=== PATIENT | male | born 1975 | race African-American/Black ===

== ENCOUNTER 2017-01-23 07:55 | Day surgery (SDC) | payer BC, MEDICARE, MEDICAID ==
[~2017-01-23 07:55] MED LIST: Bupivacaine 0.5% 50 ML MDV ONE; Lidocaine 1% with EPINEPHrine 1:100,000 50 ML MDV ONE
[2017-01-23] MEDS ORDERED: fentaNYL 100 MCG/2 ML SDV ONE (08:03)
[2017-01-23] MEDS ORDERED: Midazolam 1 MG/ML 2 ML SDV ONE (08:03)
[2017-01-23] MEDS ORDERED: Propofol 200 MG/20 ML SDV ONE (08:03)
[2017-01-23] MEDS ORDERED: Dextrose 5%-Lactated Ringers 1,000 ML IV SCH (08:15)
[2017-01-23] MEDS ORDERED: Oseltamivir 75 MG Cap PO ONE (10:20)
[2017-01-23 10:52] VITALS: BP 134/80
--- NOTE | 2017-01-29 15:49 | OR ---
DATE OF PROCEDURE: 01/23/2017 PREOPERATIVE DIAGNOSIS: Status external hemodialysis catheter placement. POSTOP DIAGNOSIS: Status external hemodialysis catheter placement. PROCEDURE: Removal of external hemodialysis catheter ([id number]). ANESTHESIA: Local plus IV sedation. INDICATIONS FOR PROCEDURE: A 41-year-old male status post placement of an external hemodialysis catheter. He had problems with rejection of his renal transplant. This problem is now resolving, and he is not requiring dialysis, and is to undergo removal of the catheter at this time. Potential risks including bleeding and infection were reviewed, and the patient wishes to proceed. DETAILS OF PROCEDURE: The patient was taken to the operating room and placed in supine position. IV sedation was administered, after which the area around the catheter was prepped and draped. Sutures were cut, and upon that, the catheter was withdrawn. Pressure was applied as was a dressing, and the procedure then concluded. There were no other complications. Shola Navarro MD /[id number]
== END 2017-01-23 11:55 | disposition home or self-care (01) ==
LOC: JP.SDS 07:55
PROVIDERS: ATTEND Surgery
DX: Z49.01 Encounter for fitting and adjustment of extracorporeal dialysis catheter (principal); N18.9 Chronic kidney disease, unspecified; Z94.0 Kidney transplant status; Z88.8 Allergy status to other drugs, medicaments and biological substances
CPT/HCPCS: 36589; A9270; J2250; J2704; J3010; J7042

== ENCOUNTER 2017-03-12 00:41 | Emergency (ER) | payer BC, MEDICARE, MEDICAID ==
[2017-03-12] MEDS ORDERED: Sodium Chloride 0.9% 1,000 ML IV SCH (01:00)
[2017-03-12 01:05] VITALS: BP 144/87
[2017-03-12] MEDS ORDERED: Oseltamivir 75 MG Cap PO ONE (01:40)
--- NOTE | 2017-03-12 01:43 | EDM.PDOC ---
ED HISTORY OF PRESENT ILLNESS - General Chief Complaint: Respiratory Problem Stated Complaint: ILLNESS Time Seen by Provider: 03/12/17 00:45 Source: Reports: Patient History Limitations: Reports: No limitations - History of Present Illness INITIAL COMMENTS - FREE TEXT/NARRATIVE: Requests testing for influenza; this is a 41-year-old male post kidney transplant, reports yesterday started to have a runny nose, pounding headache and a horrible cough, about 2 hours ago developed body aches chills and a fever of 102. He is able to tolerate fluids just doesn't feel hungry, no nausea, no vomiting, one episode of diarrhea. 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 Household contact with positive influenza in December, which spread from child to grandparent but Mr. Chaves and his did not experience any influenza symptoms. Timing/Duration: Reports: Day(s): (2), Getting worse Severity: moderate Associated Symptoms: Reports: cough, fever/chills, headaches, loss of appetite Treatment(s) DIRECTOR OF RADIOLOGY: Reports: Acetaminophen - Related Data Allergies/ADRs: Allergies Allergy/AdvReac Type Severity Reaction Status Date / Time hydromorphone [From Dilaudid] Allergy Rash Verified 03/12/17 00:52 lisinopril AdvReac Cough Verified 03/12/17 00:52 Home Meds: Home Meds Acetaminophen [Tylenol Extra Strength] 500 mg PO Q6H PRN 03/21/15 [History] Cetirizine [ZyrTEC] 20 mg PO DAILY 03/21/15 [History] Escitalopram [Lexapro] 20 mg PO DAILY 03/21/15 [History] atorvaSTATin [Lipitor] 40 mg PO DAILY 03/21/15 [History] Calcitriol [Rocaltrol] 0.25 mcg PO DAILY 09/02/16 [History] Cyanocobalamin (Vitamin B-12) [Vitamin B-12] 1,000 mcg SL DAILY 09/02/16 [ History] Multivitamin [Multivitamins] 1 cap PO DAILY 09/02/16 [History] Mycophenolate Mofetil 500 mg PO BID 09/02/16 [History] Tacrolimus 9 mg PO BID 09/02/16 [History] Vitamin B Complex 1 tab PO DAILY 09/02/16 [History] buPROPion [Wellbutrin SR] 150 mg PO BID 09/02/16 [History] predniSONE 10 mg PO DAILY 09/02/16 [History] Pantoprazole [ProTONIX] 40 mg PO DAILY 09/18/16 [History] Nebivolol [Bystolic] 10 mg PO DAILY 01/22/17 [History] Past Medical History HEENT History: Reports: Allergic rhinitis Cardiovascular History: Reports: High cholesterol, Hypertension Respiratory History: Reports: Sleep apnea Gastrointestinal History: Reports: None Genitourinary History: Reports: Renal disease Other Genitourinary History: right kidney transplant Musculoskeletal History: Reports: Gout Psychiatric History: Reports: Anxiety, Depression Endocrine/Metabolic History: Reports: Hypothyroidism Hematologic History: Reports: Anemia Immunologic History: Reports: Solid organ transplant, Other (see below) Other Immunologic History: right kidney transplant October 2015 - Infectious Disease History Infectious Disease History: Reports: Chicken pox - Past Surgical History HEENT Surgical History: Reports: Oral surgery, Other (see below) Other HEENT Surgeries/Procedures: wisdom teeth x4 removed Cardiovascular Surgical History: Reports: None Respiratory Surgical History: Reports: None GI Surgical History: Reports: Bariatric procedure, Hernia, inguinal Male Surgical History: Reports: None Endocrine Surgical History: Reports: None Musculoskeletal Surgical History: Reports: None Social & Family History - Family History Family Medical History: Noncontributory Cardiac: Reports: High cholesterol, Hypertension, CT Musculoskeletal: Reports: Arthritis Neurological: Reports: Migraines Psychiatric: Reports: Anxiety Endocrine/Metabolic: Reports: Obesity/MBI 30+ - Tobacco Use Smoking Status *Q: Never Smoker Years of Tobacco use: 3 Packs/Tins Daily: 0.1 Used Tobacco, but Quit: Yes Month Tobacco Last Used: october Second Hand Smoke Exposure: No - Caffeine Use Caffeine Use: Reports: Coffee - Alcohol Use Days Per Week of Alcohol Use: 0 - Recreational Drug Use Recreational Drug Use: No - Living Situation & Occupation Living situation: Reports: , with family Occupation: employed (Employed by the school, lives with his and children in [facility] ED ROS GENERAL - Review of Systems Review Of Systems: See Below Constitutional: Reports: fever, chills, malaise, decreased appetite HEENT: Reports: Rhinitis Respiratory: Reports: Cough Cardiovascular: Reports: No symptoms Endocrine: Reports: no symptoms GI/Abdominal: Reports: Diarrhea : Reports: no symptoms, other (History of renal transplant) Musculoskeletal: Reports: no symptoms Skin: Reports: no symptoms Neurological: Reports: No Symptoms Psychiatric: Reports: No symptoms Hematologic/Lymphatic: Reports: no symptoms Immunologic: Reports: no symptoms ED EXAM, GENERAL - Physical Exam Exam: See Below Exam Limited By: No limitations General Appearance: alert, WD/WN, no apparent distress Ears: normal external exam, normal canal, hearing grossly normal, normal TMs Ear Exam: bilateral ear: auricle normal, canal normal, TM normal Nose: normal inspection, normal mucosa, no blood Throat/Mouth: Normal inspection, Normal lips, Normal teeth, Normal gums, Normal oropharynx, Normal voice, No airway compromise Head: atraumatic, normocephalic Neck: normal inspection, supple, non-tender, full range of motion Respiratory/Chest: no respiratory distress, lungs clear, normal breath sounds, no accessory muscle use, chest non-tender Cardiovascular: regular rate, rhythm, no edema, no murmur GI/Abdominal: normal bowel sounds, soft, non tender, no organomegaly, no distention, no abnormal bruit, no mass (Male) Exam: Deferred Rectal (Males) Exam: Deferred Extremities: normal inspection, non-tender, no pedal edema Neurological: alert, oriented, normal cognition, normal reflexes, no motor/ sensory deficits Psychiatric: normal affect, normal mood Skin Exam: Warm, Dry, Intact, Normal color, No rash Lymphatic: no adenopathy Course - Vital Signs Last Recorded V/S: Last Vital Signs Temp 37.4 C 03/12/17 02:47 Pulse 74 03/12/17 01:03 Resp 16 03/12/17 01:03 BP 144/87 H 03/12/17 01:03 Pulse Ox 96 03/12/17 01:03 - Orders/Labs/Meds Labs: Laboratory Tests 03/12/17 03/12/17 03/12/17 Range/Units 00:46 00:46 00:47 WBC 5.9 (4.5-11.0) K/uL RBC 3.84 L (4.30-5.90) M/uL Hgb 10.1 L (12.0-15.0) g/dL Hct 30.2 L (40.0-54.0) % MCV 79 L (80-98) fL MCH 26 L (27-31) pg MCHC 33 (32-36) % Plt Count 152 (150-400) K/uL Neut % (Auto) 74 H (36-66) % Lymph % (Auto) 13 L (24-44) % [place] % (Auto) 12 H (2-6) % Eos % (Auto) 1 L (2-4) % Baso % (Auto) 0 (0-1) % Sodium 143 (140-148) mmol/L Potassium 4.0 (3.6-5.2) mmol/L Chloride 105 (100-108) mmol/L Carbon Dioxide 27 (21-32) mmol/L Anion Gap 11.1 (5.0-14.0) mmol/L BUN 22 H (7-18) mg/dL Creatinine 2.8 H (0.8-1.3) mg/dL Est Cr Clr Drug Dosing 38.49 mL/min Estimated GFR (MDRD) 31 L (>60) Glucose 89 (74-106) mg/dL Lactic Acid (0.4-2.0) mmol/L Calcium 8.3 L (8.5-10.1) mg/dL Total Bilirubin 0.5 (0.2-1.0) mg/dL AST 22 (15-37) U/L ALT 32 (12-78) U/L Alkaline Phosphatase 85 (46-116) U/L Total Protein 6.3 L (6.4-8.2) g/dL Albumin 3.6 (3.4-5.0) g/dL Globulin 2.7 (2.3-3.5) g/dL Albumin/Globulin Ratio 1.3 (1.2-2.2) Amylase 138 H (25-115) U/L Lipase 173 (73-393) U/L 03/12/17 Range/Units 00:47 WBC (4.5-11.0) K/uL RBC (4.30-5.90) M/uL Hgb (12.0-15.0) g/dL Hct (40.0-54.0) % MCV (80-98) fL MCH (27-31) pg MCHC (32-36) % Plt Count (150-400) K/uL Neut % (Auto) (36-66) % Lymph % (Auto) (24-44) % [place] % (Auto) (2-6) % Eos % (Auto) (2-4) % Baso % (Auto) (0-1) % Sodium (140-148) mmol/L Potassium (3.6-5.2) mmol/L Chloride (100-108) mmol/L Carbon Dioxide (21-32) mmol/L Anion Gap (5.0-14.0) mmol/L BUN (7-18) mg/dL Creatinine (0.8-1.3) mg/dL Est Cr Clr Drug Dosing mL/min Estimated GFR (MDRD) (>60) Glucose (74-106) mg/dL Lactic Acid 0.9 (0.4-2.0) mmol/L Calcium (8.5-10.1) mg/dL Total Bilirubin (0.2-1.0) mg/dL AST (15-37) U/L ALT (12-78) U/L Alkaline Phosphatase (46-116) U/L Total Protein (6.4-8.2) g/dL Albumin (3.4-5.0) g/dL Globulin (2.3-3.5) g/dL Albumin/Globulin Ratio (1.2-2.2) Amylase (25-115) U/L Lipase (73-393) U/L Meds: Medications Discontinued Medications Generic Name Dose Route Start Last Admin Trade Name Freq PRN Reason Stop Dose Admin Sodium Chloride 1,000 mls @ 500 mls/hr 03/12/17 01:00 03/12/17 01:20 Normal Saline IV 500 mls/hr ASDIRECTED BOLIVAR Administration Oseltamivir Phosphate 75 mg 03/12/17 01:40 03/12/17 01:47 Tamiflu PO 03/12/17 01:41 75 mg ONETIME ONE Administration - Re-Assessments/Exams Free Text/Narrative Re-Assessment/Exam: 03/12/17 02:15 Lab testing he is at baseline, positive influenza B. Given 1 L of IV fluids, Tamiflu 75 mg po in ER Discussed infection control, treatment, advised rest, return if not improved her symptoms worsen to Departure - Departure Time of Disposition: 02:48 Disposition: Home, Self-Care 01 Condition: good Clinical Impression: Influenza Instructions: Influenza, Adult, [id number] Referrals: Elidia Burns NP [Primary Care Provider] - Forms: ED Department Discharge Care Plan Goals: Influenza B -Tamiflu 75mg by mouth twice a day x5 days -Advised to push fluids, rest, take medication as directed, and return to ER or clinic if not improved. - Problem List & Annotations (1) Influenza SNOMED Code(s): 6476143 Code(s): J11.1 - FLU DUE TO UNIDENTIFIED INFLUENZA VIRUS W OTH RESP MANIFEST Status: Acute Priority: High - Problem List Review Problem List Initiated/Reviewed/Updated: Yes - Assessment/Plan Plan: Influenza B -Tamiflu 75mg by mouth twice a day x5 days -Advised to push fluids, rest, take medication as directed, and return to ER or clinic if not improved.
--- NOTE | 2017-03-12 08:45 | CR ---
Chest 2V INDICATION: cough FINDINGS: Negative chest.
== END 2017-03-12 02:48 | disposition home or self-care (01) ==
LOC: JP.ED 00:41
DX: J11.1 Influenza due to unidentified influenza virus with other respiratory manifestations (principal); E78.00 Pure hypercholesterolemia, unspecified; I10 Essential (primary) hypertension; E03.9 Hypothyroidism, unspecified; Z94.0 Kidney transplant status; Z87.891 Personal history of nicotine dependence; Z98.890 Other specified postprocedural states; Z79.899 Other long term (current) drug therapy; Z88.8 Allergy status to other drugs, medicaments and biological substances
CPT/HCPCS: 36415; 71020; 80053; 82150; 83605; 83690; 85025; 87081; 87430; 87804; 99284; A9270; J7040; 99283

== ENCOUNTER 2023-02-14 16:41 | Emergency (ER) | payer MEDICARE, MEDICAID ==
[2023-02-14] MEDS ORDERED: Sodium Chloride 0.9% 10 ML Syringe FLUSH PRN (16:57)
[2023-02-14 17:43] LABS: ESTIMATED GFR 7 mL/min (>60)
[2023-02-14 17:57] VITALS: BP 167/127; PULSE 65
== END 2023-02-14 18:49 | disposition home or self-care (01) ==
LOC: JP.ED 16:41
DX: F10.920 Alcohol use, unspecified with intoxication, uncomplicated (principal); I12.0 Hypertensive chronic kidney disease with stage 5 chronic kidney disease or end stage renal disease; N18.6 End stage renal disease; D63.1 Anemia in chronic kidney disease; R74.01 Elevation of levels of liver transaminase levels; E78.00 Pure hypercholesterolemia, unspecified; Z99.2 Dependence on renal dialysis; Z88.5 Allergy status to narcotic agent; Z88.8 Allergy status to other drugs, medicaments and biological substances; Z20.822 Contact with and (suspected) exposure to COVID-19; Y90.7 Blood alcohol level of 200-239 mg/100 ml
CPT/HCPCS: 36415; 71045; 80053; 80305; 80307; 82803; 83735; 83880; 84100; 84145; 84484; 85025; 93005; 93010; 99284; 99285; U0002

== ENCOUNTER 2023-10-20 14:18 | Emergency (ER) | payer MEDICAID, MEDICARE ==
[2023-10-20 15:25] VITALS: BP 170/92; PULSE 93
== END 2023-10-20 16:09 | disposition left against medical advice (07) ==
LOC: JP.ED 14:18
DX: Z53.21 Procedure and treatment not carried out due to patient leaving prior to being seen by health care provider (principal)

== ENCOUNTER 2024-08-08 11:44 | Emergency (ER) | payer MEDICARE ==
[2024-08-08 12:02] VITALS: BP 132/95; PULSE 65
[2024-08-08 12:20] LABS: BASOPHILS PERCENT AUTO 0.5 % (0.1-1.3); EOSINOPHILS ABSOLUTE AUTO 0.04 K/uL (0.00-0.40); EOSINOPHILS PERCENT AUTO 0.9 % (0.0-5.4); HEMOGLOBIN 11.6 g/dL (12.9-16.9); IMMATURE GRAN ABSOLUTE AUTO 0.03 K/uL (0.00-0.23); IMMATURE GRAN PERCENT AUTO 0.7 % (0.0-0.7); LYMPHOCYTES ABSOLUTE AUTO 0.99 K/uL (0.8-3.3); LYMPHOCYTES PERCENT AUTO 22.9 % (11.4-47.7); MEAN CORPUSCULAR HEMOGLOBIN 30.4 pg (31.6-35.5); MEAN CORPUSCULAR HGB CONC 36.3 g/dL (31.6-35.5); MEAN CORPUSCULAR VOLUME 83.8 fL (81.4-99.0); MONOCYTES ABSOLUTE AUTO 0.48 K/uL (0.20-0.90); MONOCYTES PERCENT AUTO 11.1 % (3.3-12.6); NEUTROPHILS ABSOLUTE AUTO 2.76 K/uL (1.0-7.6); NEUTROPHILS PERCENT AUTO 63.9 % (40.0-78.1); PLATELET COUNT,PLT 160 K/uL (130-375); RED BLOOD CELL COUNT 3.82 M/uL (4.14-5.76); WHITE BLOOD CELL COUNT,WBC 4.3 K/uL (3.2-11.0)
[2024-08-08 12:46] LABS: BASOPHILS ABSOLUTE AUTO 0.02 K/uL (0.00-0.10)
[2024-08-08 12:56] LABS: ALANINE AMINOTRANSFERASE,ALT 40 U/L (12-78); ALBUMIN 3.1 g/dL (3.4-5.0); ALKALINE PHOSPHATASE 150 U/L (46-116); ANION GAP 20.5 mmol/L (5.0-14.0); ASPARTATE AMNIOTRANSFERASE,AST 84 U/L (15-37); BILIRUBIN TOTAL 0.4 mg/dL (0.2-1.0); BLOOD UREA NITROGEN,BUN 51 mg/dL (7-18); CALCIUM 8.9 mg/dL (8.5-10.1); CARBON DIOXIDE,CO2 22 mmol/L (21-32); CHLORIDE,CL 101 mmol/L (100-108); EST CRCL DRUG DOSING (CG) 7.67 mL/min; ESTIMATED GFR 5 mL/min (>60); GLUCOSE RANDOM 95 mg/dL (74-106); POTASSIUM,K 3.5 mmol/L (3.6-5.2); PROTEIN TOTAL,TP 6.3 g/dL (6.4-8.2); SODIUM,NA 140 mmol/L (140-148)
[2024-08-08 12:57] LABS: CREATININE 12.3 mg/dL (0.8-1.3)
== END 2024-08-08 14:31 | disposition home or self-care (01) ==
LOC: JP.ED 11:44
DX: E16.2 Hypoglycemia, unspecified (principal); I12.0 Hypertensive chronic kidney disease with stage 5 chronic kidney disease or end stage renal disease; N18.6 End stage renal disease; E78.00 Pure hypercholesterolemia, unspecified; E03.9 Hypothyroidism, unspecified; Z88.5 Allergy status to narcotic agent; Z88.8 Allergy status to other drugs, medicaments and biological substances; Z94.0 Kidney transplant status; Z79.899 Other long term (current) drug therapy
CPT/HCPCS: 36415; 80053; 82947; 83605; 83690; 85025; 99284; 99285